=== PATIENT | female | born 1950 | race Caucasian/White ===

== ENCOUNTER 2019-04-09 04:54 | Inpatient (IN) ==
[2019-04-03 13:07] LABS: Basophils # (Auto) 0 K/mcL (0.0-0.3); Basophils % (Auto) 0.4 % (0.0-2.0); Eosinophils # (Auto) 0.1 K/mcL (0.0-0.7); Eosinophils % (Auto) 2.2 % (0.0-7.0); Hemoglobin 13.7 g/dL (12.0-15.0); Lymphocytes # (Auto) 1.4 K/mcL (1.5-4.8); Lymphocytes % (Auto) 22.7 % (15.5-49.0); Mean Cell Volume 94.7 fL (80.0-100.0); Mean Corpuscular HGB Conc 34.2 g/dL (31.0-36.0); Mean Platelet Volume 8.1 fL (7.4-10.4); Monocytes # (Auto) 0.7 K/mcL (0.1-0.9); Monocytes % (Auto) 10.7 % (1.0-12.0); Platelet Count 284 K/mcL (140-440); RBC 4.23 M/mcL (4.00-5.20); Red Cell Distribution Width 12.8 % (11.5-14.5); WBC 6.2 K/mcL (4.5-11.0)
[2019-04-03 13:49] LABS: Estimated Average Glucose(eAG) 103 mg/dL; Hemoglobin A1C 5.2 % HGB (4.0-6.0)
[2019-04-03 13:58] LABS: Appearance,Urine CLEAR; Bilirubin,Urine NEG (NEG); Color,Urine STRAW; Culture Indicated,Urine NO; Glucose,Urine (UA) NEGATIVE (NEG); Ketones,Urine NEG (NEG); Leukocyte Esterase,Urine NEG /uL (NEG); Nitrate,Urine NEG (NEG); Protein,Urine NEG (NEG); Specific Gravity,Urine 1.006 (1.000-1.035); Urine Blood NEG mg/dL (<0.03); Urobilinogen,Urine NEG (NEG)
[2019-04-03 14:03] LABS: Blood Urea Nitrogen 20 mg/dl (8-23); Calcium 9.6 mg/dl (8.6-10.4); Carbon Dioxide 23 mmol/L (22-30); Chloride 100 mmol/L (96-108); Glomerular Filtration Rate 90; Glucose 98 mg/dL (70-105)
[2019-04-09] MEDS ORDERED: CELECOXIB 200 MG CAPSULE PO SCH (06:00)
[2019-04-09] MEDS ORDERED: PREGABALIN 75 MG CAPSULE PO SCH (06:00)
[2019-04-09] MEDS ORDERED: ceFAZolin 2 GM in DEXTROSE 5% IN WATER 50 ML IV SCH (06:00)
[2019-04-09] MEDS ORDERED: oxyCODONE 10 MG TAB.ER.12H PO SCH (06:00)
[2019-04-09] MEDS ORDERED: IPRATROPIUM/ALBUTEROL 3 ML AMPUL.NEB NEB PRN ×2 (06:03→09:34)
[2019-04-09] MEDS ORDERED: SCOPOLAMINE 1 PATCH PATCH TOPICAL PRN (06:03)
[2019-04-09] MEDS ORDERED: HEPARIN 20,000 UNIT/ML VIAL IR ONE (07:09)
[2019-04-09] MEDS ORDERED: GLYCOPYRROLATE 0.2 MG/ML VIAL IV ONE (07:55)
[2019-04-09] MEDS ORDERED: TRANEXAMIC ACID 1,000 MG/10 ML VIAL IV ONE ×2 (07:55→09:15)
[2019-04-09] MEDS ORDERED: PROPOFOL 200 MG/20 ML VIAL IV ONE (07:55)
[2019-04-09] MEDS ORDERED: ONDANSETRON 4 MG/2 ML VIAL IV ONE (07:55)
[2019-04-09] MEDS ORDERED: PHENYLEPHRINE 10 MG/ML VIAL IV ONE (07:55)
[2019-04-09] MEDS ORDERED: DEXAMETHASONE 10 MG/ML VIAL IV ONE (07:55)
[2019-04-09] MEDS ORDERED: ePHEDrine 50 MG/ML AMPUL IV ONE (07:55)
[2019-04-09] MEDS ORDERED: LIDOCAINE HCL/PF 100 MG/5 ML SYRINGE IV ONE (07:55)
[2019-04-09] MEDS ORDERED: KETAMINE 100 MG/ML ML IV ONE (07:55)
[2019-04-09] MEDS ORDERED: MIDAZOLAM 5 MG/5 ML VIAL IV ONE (07:55)
[2019-04-09] MEDS ORDERED: FLEETS ADULT ENEMA PR PRN (09:15)
[2019-04-09] MEDS ORDERED: KETOROLAC 15 MG/ML VIAL IV PRN ×2 (09:15→09:34)
[2019-04-09] MEDS ORDERED: BENZOCAINE/MENTHOL 1 LOZENGE PO PRN ×2 (09:15→09:34)
[2019-04-09] MEDS ORDERED: MAGNESIUM HYDROXIDE 30 ML ORAL.SUSP PO PRN (09:15)
[2019-04-09] MEDS ORDERED: BISACODYL 10 MG SUPP.RECT PR PRN (09:15)
[2019-04-09] MEDS ORDERED: ONDANSETRON 4 MG/2 ML VIAL IV PRN ×2 (09:15→09:34)
[2019-04-09] MEDS ORDERED: POLYETHYLENE GLYCOL 3350 17 GM PACKET PO PRN (09:15)
--- NOTE | 2019-04-09 09:15 | Brief Operative Note ---
Date of procedure: 04/09/19 Pre-op diagnosis: R hip DJD Post-op diagnosis: same Procedure: Right anterior total hip arthroplasty Grafts/Implants: Yes (Depuy Actis 8 std stem, +5 36 delta head, 52 cup, neutral altrx liner) Anesthesia: spinal, GLMA Findings: large joint effusion, large labral tear Complications: none Surgeon: Jonah Nielsen Peanut Blancher: Aidan Washington Estimated blood loss (cc): 200 Specimens Removed/Pathology: none sent Condition: stable Disposition: PACU
[2019-04-09] MEDS ORDERED: traMADol 50 MG TABLET PO PRN (09:19)
[2019-04-09] MEDS ORDERED: ACETAMINOPHEN 325 MG TABLET PO PRN (09:19)
[2019-04-09] MEDS ORDERED: fentaNYL 100 MCG/2 ML VIAL IV PRN (09:34)
[2019-04-09] MEDS ORDERED: FLUMAZENIL 0.1 MG/ML ML IV PRN (09:34)
[2019-04-09] MEDS ORDERED: NALOXONE HCL 0.4 MG/ML VIAL IV PRN (09:34)
[2019-04-09] MEDS ORDERED: LACTATED RINGERS 250 ML IV PRN (09:34)
[2019-04-09] MEDS ORDERED: ACETAMINOPHEN 1,000 MG/100 ML BOTTLE IV ONE (09:34)
[2019-04-09] MEDS ORDERED: METHOCARBAMOL 1,000 MG/10 ML VIAL IV PRN (09:34)
[2019-04-09] MEDS ORDERED: LACTATED RINGERS 1,000 ML IV SCH (09:45)
[2019-04-09] MEDS: MEPERIDINE 25 MG/ML SYRINGE IV PRN ×2 (09:58→10:05)
--- NOTE | 2019-04-09 10:26 | XRay Report ---
HISTORY: Postop right hip replacement FINDINGS: Patient is a well-positioned newly inserted right total hip prosthesis. There is no fracture or abnormal soft tissue calcification around the joint. There is an indwelling left hip prosthesis. There are old healed fractures of the left side of the pelvis. 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 The myositis ossificans has progressed since the prior x-ray done in 2014. IMPRESSION: Well-positioned right hip prosthesis Interpreted and Authenticated by: Ho Martin 04/09/19
[2019-04-09] MEDS: 0.9 % SODIUM CHLORIDE 1,000 ML IV SCH ×2 (10:48→20:44)
--- NOTE | 2019-04-09 11:29 | Operative Note ---
DATE OF OPERATION: 04/09/2019 PREOPERATIVE DIAGNOSIS: Right hip degenerative joint disease with labral tear. POSTOPERATIVE DIAGNOSIS: Right hip degenerative joint disease with labral tear. PROCEDURE PERFORMED: Right anterior total hip arthroplasty placing a DePuy Actis size 8 standard offset femoral stem, a +5, 36 mm delta ceramic head ball, a 52 Acworth cup with a neutral AltrX liner. SURGEON: Jonah Nielsen MD [employer] MEMBER: Emanuel Washington PA-C. This provider's expertise and technical skill were required throughout the case. The PA assisted with preoperative coordination, intraoperative retraction, wound closure, dressing and splint application, as well as postoperative documentation and care coordination. ANESTHESIA: Spinal plus general. DRAINS: None. SPECIMENS: Femoral head which was discarded. BLOOD LOSS: 200 mL COMPLICATIONS: None. POSTOPERATIVE CONDITION: Stable. INDICATIONS FOR SURGERY: This is a 68-year-old female who has had progressive worsening right hip pain. 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 She also had an MRI which showed a labral tear. FINDINGS AT SURGERY: She had a significant acetabular dysplasia with a large labral tear. Post implantation showed relative equal leg lengths and offset compared to her previously replaced left hip and components in good position. PROCEDURE IN DETAIL: The patient had been seen preoperatively and informed consent had been obtained after discussion of risks and benefits of surgery. Risks including, but not limited to, bleeding, possibly requiring transfusion; infection, possibly requiring implant removal and prolonged IV antibiotics; injury to nerves, blood vessels, and other surrounding structures; anesthetic risks; incomplete or no resolution of symptoms; leg length discrepancy; dislocation; fracture; DVT and pulmonary embolus risks; and the possibility of needing further revision joint surgery. She understood and wished to proceed. Correct operative site was marked in preoperative holding and patient received spinal anesthesia. She was then taken to the operating room and LMA general given. She was carefully positioned on the fracture table and the right hip and groin were then carefully prepped and draped in normal sterile fashion. Timeout performed verifying patient name, operative site, and plan. Ioban was used to cover all skin surfaces and then a standard anterior approach incision was made with a scalpel through skin and subcutaneous tissue. Hemostasis was obtained with Bovie cautery. Blunt dissection was taken down onto the tensor fascia and then undermined circumferentially. IrriSept was irrigated and then a ring retractor placed. Tensor fascia was incised in line with the muscle fibers and then careful blunt dissection taken medial to the muscle fibers and then blunt cobra retractors placed on the superior and inferior neck. Circumflex vessels were coagulated and cut and vastus fascia split distally. Anterior capsulectomy was performed and upon entering the capsule, a large joint effusion was suctioned and then we visualized a very large labral tear. Corkscrew was placed in the femoral head. Osteotome was used under fluoro to identify our approximate neck cut trajectory and then oscillating tip saw used to make our osteotomy and the femoral head was removed. The acetabulum was exposed. Labrum was excised circumferentially, which was very frayed and torn. We went ahead and irrigated the acetabulum with IrriSept and then using the reamer under fluoroscopy, we initially medialized to the tear drop and increased reamer size and angle until we got rim ream with a 51 reamer. A 52 3-hole Acworth cup was opened. We irrigated more IrriSept, after a minute pulse lavage with saline and then impacted the cup using the [id number]. Joint point was used to check our position and we were about 40 degrees of inclination and 25 degrees of anteversion. We did get good pressfit, so we went ahead and placed a center hole cover and a neutral AltrX liner was carefully aligned and impacted. Traction was released from the leg. It was externally rotated, we released capsule along the medial neck around posteriorly. The leg was then extended and adducted. Capsule was released out to the greater trochanter and then after adequate proximal femoral exposure was obtained, a box osteotome was used to gain canal entry. An awl was used to identify trajectory of the canal and then a rongeur and rasp were used to lateralize. We then began sequentially broaching all the way up to a size 7, which we stopped at our neck cut. We calcar planed minimally and then placed a standard offset neck trial with a +1.5 head ball. The hip reduced without significant tension. We then checked our fluoroscopic images and using joint point it was determined we had not lengthened her leg at all. Preoperatively, she was about 7 mm short, so we also looked at this femoral stem in the canal and it appeared to be slightly undersized, so I redislocated and removed used the [id number] to impact the #7 and broached down even little below our neck cut, so I went ahead and removed this and went up to a size 8. This seated just above our neck cut. I went ahead and opened a size 8 Actis stem. The trial was removed. We irrigated with IrriSept down the canal. After a minute we pulse lavaged with saline copiously and then impacted the stem. It seated a millimeter or 2 above our neck cut and I went ahead up to a +5 head ball. This was opened. The stem was carefully cleaned and dried and the head ball impacted with multiple blows from the [id number]. We then reduced the hip. This time there was better tension. Fluoro was brought in. Final images were taken; according to joint point we were about 5 to 6 mm lengthened. We went ahead and irrigated with IrriSept, after a minute copiously pulse lavaged with saline. #1 Vicryl was used to close tensor fascia with running stitches and then a ring retractor was removed. IrriSept was irrigated again and after a minute pulse lavaged with saline. Fat was tacked to fascia with Vicryl and 2-0 Monocryl used for subcutaneous and maria t for skin. Xeroform sterile dressings were applied. The patient was then awakened, extubated, and transferred to recovery in stable condition. BJB:carlie Job ID: [id number] Doc ID: [id number] Jonah Nielsen MD
[2019-04-09] MEDS: oxyCODONE/APAP 5/325MG TABLET PO PRN ×3 (11:54→22:11)
[2019-04-09] MEDS: 0.9 % SODIUM CHLORIDE 10 ML SYRINGE IV SCH ×2 (14:15→20:47)
[2019-04-09] MEDS: ceFAZolin 1 GM VIAL IV SCH ×2 (14:59→23:26)
[2019-04-09] MEDS: DOCUSATE SODIUM 100 MG CAPSULE PO SCH ×2 (15:00→20:45)
[2019-04-09] MEDS: ASPIRIN 81 MG TAB.CHEW PO SCH (20:45)
[2019-04-09] MEDS: ACYCLOVIR 400 MG TABLET PO SCH (20:46)
[2019-04-09] MEDS ORDERED: DOCUSATE SODIUM 100 MG CAPSULE PO SCH (21:00)
[2019-04-09] MEDS ORDERED: SENNOSIDES 1 TABLET PO SCH (21:00)
[2019-04-10] MEDS: oxyCODONE/APAP 5/325MG TABLET PO PRN ×4 (01:59→13:33)
[2019-04-10] MEDS: 0.9 % SODIUM CHLORIDE 10 ML SYRINGE IV SCH (04:26)
[2019-04-10] MEDS: 0.9 % SODIUM CHLORIDE 1,000 ML IV SCH (07:26)
--- NOTE | 2019-04-10 07:44 | Discharge Summary ---
Providers - Providers Patient information: Note initiated : 04/10/19 at 7:40 am Service Date, if different from initiated Date: [] Patient: Bobbi Miller 68 y/o F admitted on 04/09/19 for Right Total Hip Arthroplasty. Chief Complaint: [] Discharge date: 04/10/19 Hospitalization Hospital Course: Pt was admitted for a R AMY. Pt underwent the procedure on the day of admission. Pt discharged to home. Will take ASA for DVT prophylaxis. Will f/u in 2 weeks. Discharge diagnosis: R hip OA Exam - Exam Clean and dry: Yes Weight bearing status: as tolerated Ortho Discharge - AMY - Patient Instructions Diet: Regular Diet Activity: weight bearing as tolerated Total Hip Protocol: Follow activity instructions as provided by Physical Therapy. Dressing Care: May shower in 2 days - Follow Up Plan Disposition: Home, Self-Care Prognosis: Good Rehab Potential: Good Overall status at discharge: patient is progressing back to baseline - Orders For Discharge Prescriptions: Aspirin 81 mg PO BID #60 tab.chew HYDROcodone/ACETAMINOPHEN [[place] 10-325 Tablet] 1 - 2 tab PO Q4 #80 tab Pending Studies Resuscitation Status Full Code Diet Regular Diet Start SunApr 09 917 Acyclovir (Zovirax) 400 mg PO BID [facility]; Protocol Last Admin: 04/09/19 20:46 Dose: 400 mg Documented by: JOSEPH Aspirin (Aspirin) 81 mg PO BID [facility] Last Admin: 04/09/19 20:45 Dose: 81 mg Documented by: JOSEPH Docusate Sodium (Colace) 100 mg PO TID [facility] Last Admin: 04/09/19 20:45 Dose: 100 mg Documented by: Admin: 04/09/19 15:00 Dose: 100 mg Documented by: BRANDO Sodium Chloride (Sodium Chloride 0.9%) 1,000 mls @ 100 mls/hr IV .Q10H [facility] Last Admin: 04/10/19 07:26 Dose: Not Given Documented by: Infusion: 04/10/19 07:25 Dose: 0 mls/hr Documented by: Admin: 04/09/19 20:44 Dose: 100 mls/hr Documented by: Infusion: 04/09/19 20:44 Dose: 100 mls/hr Documented by: Admin: 04/09/19 10:48 Dose: 100 mls/hr Documented by: BRANDO Ketorolac Tromethamine (Toradol) 15 mg IV Q6HP PRN PRN Reason: Pain Stop: 04/11/19 09:17 Last Admin: 04/10/19 02:00 Dose: 15 mg Documented by: JOSEPH Morphine Sulfate (Morphine) 0 mg IV Q1HP PRN PRN Reason: PAIN LEVEL > 6 Last Admin: 04/10/19 01:35 Dose: 4 mg Documented by: Admin: 04/09/19 23:27 Dose: 4 mg Documented by: Admin: 04/09/19 15:07 Dose: 4 mg Documented by: Admin: 04/09/19 11:14 Dose: 2 mg Documented by: BRANDO Oxycodone/Acetaminophen (Percocet 5-325 Mg) 0 tab PO Q4HP PRN PRN Reason: PAIN LEVEL 3-6 Last Admin: 04/10/19 06:00 Dose: 2 tab Documented by: Admin: 04/10/19 01:59 Dose: 2 tab Documented by: Admin: 04/09/19 22:11 Dose: 2 tab Documented by: Admin: 04/09/19 17:02 Dose: 2 tab Documented by: Admin: 04/09/19 11:54 Dose: 2 tab Documented by: BRANDO Senna (Senokot) 2 tab PO HS [facility] Last Admin: 04/09/19 20:45 Dose: 2 tab Documented by: JOSEPH Sodium Chloride (Saline Flush) 10 ml IV Q8 [facility] Last Admin: 04/10/19 04:26 Dose: Not Given Documented by: Admin: 04/09/19 20:47 Dose: Not Given Documented by: Admin: 04/09/19 14:15 Dose: Not Given Documented by: BRANDO Shift Summary 04/10/19 04:41 Shift Summary by Zenon Hodges Pt has rested on & off around care - no sig sleep. RT hip pain was low early in the shift - increased later in the sarah. Perc (2) PO given every 4 hrs - last @ 0200 - will give another dose just before 0600. Morphine 4mg last given @ 0135. IV toradol 15mg given @ 0200. She has declined ice packs. Pt up AMB in [place], and to & from [facility] - gait mostly stable w/ FWW & CGA. RT hip dressing - 2x very slight shadow areas - otherwise C,D,I. IV LT F/A w/ NS infusing @ 100ml/hr. Last PVR was 30ml @ 2019 no further PVR scans required. VS - mostly WNL on R.A. - B/P running low - last @ 0345 was 109/55. She is A&O x4, calm, pleasant & cooperative. Probable D/C later today. Initialized on 04/10/19 04:41 - END OF NOTE
[2019-04-10] MEDS: DOCUSATE SODIUM 100 MG CAPSULE PO SCH (08:51)
[2019-04-10] MEDS: ASPIRIN 81 MG TAB.CHEW PO SCH (08:51)
[2019-04-10] MEDS: ACYCLOVIR 400 MG TABLET PO SCH (08:52)
[2019-04-10] MEDS ORDERED: MAGNESIUM ASPARTATE PO SCH (09:00)
[2019-04-10] MEDS ORDERED: VITAMIN D3 1,000 UNIT TABLET PO SCH (09:00)
[2019-04-10] MEDS ORDERED: diphenhydrAMINE 25 MG CAPSULE PO SCH (09:00)
[2019-04-10] MEDS ORDERED: TURMERIC ROOT EXTRACT PO SCH (09:00)
[2019-04-10] MEDS ORDERED: CETIRIZINE 10 MG TABLET PO SCH (09:00)
[2019-04-10] MEDS ORDERED: [UNRECOGNIZED DRUG - OTHER] PO SCH (09:00)
[2019-04-10] MEDS ORDERED: POTASSIUM PO SCH (09:00)
[2019-04-10] MEDS ORDERED: ASCORBIC ACID 500 MG TABLET PO SCH (09:00)
[2019-04-10] MEDS ORDERED: CYANOCOBALAMIN (VITAMIN B-12) 500 MCG TABLET PO SCH (09:00)
== END 2019-04-10 13:50 | disposition home or self-care (01) | DRG 470 ==
LOC: MEDSUR 04:54
PROVIDERS: ADMIT Orthopaedic Surgery; ATTEND Orthopaedic Surgery